=== PATIENT | male | born 1995 | race Caucasian/White ===

== ENCOUNTER 2024-10-08 14:57 | Emergency (ER) | payer MEDICAID ==
[~2024-10-08] VITALS: Ht 170.2 cm; Wt 95.0 kg
[2024-10-08 15:34] LABS: BASOPHILS # (AUTO) 0.2 X10'3 (0-0.2); BASOPHILS % (AUTO) 1.2 % (0-1); EOSINOPHILS # (AUTO) 0.2 X10'3 (0-0.9); HEMATOCRIT 42.8 % (42.0-52.0); HEMOGLOBIN 14.2 g/dl (14.0-17.9); LYMPHOCYTES # (AUTO) 3.3 X10'3 (1.1-4.8); LYMPHOCYTES % (AUTO) 26.8 % (21-51); MEAN CORPUSCULAR HEMOGLOBIN 27.9 PG (27.0-31.0); MEAN CORPUSCULAR HGB CONC 33.1 g/dL (33.0-36.5); MEAN CORPUSCULAR VOLUME 84.3 FL (78-98); MEAN PLATELET VOLUME 10.1 FL (7.4-10.4); MONOCYTES # (AUTO) 1.1 X10'3 (0-0.9); MONOCYTES % (AUTO) 8.9 % (2-12); NEUTROPHILS # (AUTO) 7.6 X10'3 (1.8-7.7); NEUTROPHILS % (AUTO) 61.1 % (42-75); PLATELET COUNT 309 X10'3 (140-440); RED BLOOD COUNT 5.08 X10'6 (4.70-6.10); WHITE BLOOD COUNT 12.4 X10'3 (4.5-11.0)
[2024-10-08 15:48] LABS: ALANINE AMINOTRANSFERASE 14 U/L (12-78); ALBUMIN 4.5 G/DL (3.4-5.0); ALBUMIN/GLOBULIN RATIO 1.1 (1.1-1.5); ALKALINE PHOSPHATASE 66 IU/L (46-116); ANION GAP 13 (8-16); ASPARTATE AMINO TRANSFERASE 17 U/L (10-37); BLOOD UREA NITROGEN 8 MG/DL (7-18); BUN/CREATININE RATIO 8.2 (10.0-20.0); CALCIUM 9.3 MG/DL (8.5-10.1); CHLORIDE 101 MMOL/L (99-107); CREATININE 0.97 MG/DL (0.60-1.10); GLUCOSE 82 MG/DL (70-104); POTASSIUM 3.3 MMOL/L (3.5-5.1); SODIUM 138 MMOL/L (135-145); TOTAL PROTEIN 8.7 G/DL (6.4-8.2); eCRCL 105 ML/MIN; eGFR > 90 ML/MIN
[2024-10-08 15:56] LABS: PRO BRAIN NATRIURETIC PEPTIDE 44 PG/ML (0-125)
[2024-10-08 17:05] VITALS: TEMP 97.3
[2024-10-08] MEDS ORDERED: OLANZapine **IM** 10 mg inj. IM ONE (17:25)
[2024-10-08] MEDS ORDERED: pantoprazole 40mg Tablet.DR PO SCH (17:25)
[2024-10-08] MEDS: pantoprazole 40mg Tablet.DR PO ONE (17:25)
[2024-10-08 17:26] LABS: D-DIMER < 0.19 MG/L FEU (0-0.50)
[2024-10-08] MEDS ORDERED: PROM25TA14 PO (17:48)
[2024-10-08] MEDS: ketorolac trometh 15mg/ml vial 15 MG/ML ML IV ONE (17:58)
[2024-10-08] MEDS: OLANZapine **IM** 10 mg inj. IM ONE (18:25)
[2024-10-08 19:55] VITALS: BP 111/58; PULSE 72; RESP 18; O2SAT 98
== END 2024-10-08 19:59 | disposition home or self-care (01) ==
LOC: ER 14:58
DX: R11.10 Vomiting, unspecified (principal); R10.84 Generalized abdominal pain; F64.0 Transsexualism; R07.89 Other chest pain; M79.7 Fibromyalgia; K21.9 Gastro-esophageal reflux disease without esophagitis
CPT/HCPCS: 36415; 71045; 80053; 83880; 84484; 85025; 85379; 93005; 96372; 96374; 99285; J1885; J3490

== ENCOUNTER 2024-12-01 11:08 | Inpatient (IN) | payer MEDICAID ==
[~2024-12-01] VITALS: Ht 170.2 cm; Wt 87.4 kg
[2024-12-01 11:52] LABS: BASOPHILS # (AUTO) 0.1 X10'3 (0-0.2); BASOPHILS % (AUTO) 0.9 % (0-1); EOSINOPHILS # (AUTO) 0.1 X10'3 (0-0.9); EOSINOPHILS % (AUTO) 1.2 % (0-6); HEMATOCRIT 40.9 % (42.0-52.0); HEMOGLOBIN 13.8 g/dl (14.0-17.9); LYMPHOCYTES # (AUTO) 2.7 X10'3 (1.1-4.8); MEAN CORPUSCULAR HEMOGLOBIN 28.2 PG (27.0-31.0); MEAN CORPUSCULAR HGB CONC 33.8 g/dL (33.0-36.5); MEAN CORPUSCULAR VOLUME 83.5 FL (78-98); MEAN PLATELET VOLUME 10.4 FL (7.4-10.4); MONOCYTES # (AUTO) 0.8 X10'3 (0-0.9); MONOCYTES % (AUTO) 7.3 % (2-12); NEUTROPHILS % (AUTO) 65.6 % (42-75); PLATELET COUNT 327 X10'3 (140-440); RED CELL DISTRIBUTION WIDTH 13.4 % (11.5-14.5); WHITE BLOOD COUNT 10.7 X10'3 (4.5-11.0)
[2024-12-01 12:25] LABS: ALANINE AMINOTRANSFERASE 16 U/L (12-78); ALBUMIN 4.4 G/DL (3.4-5.0); ALKALINE PHOSPHATASE 62 IU/L (46-116); ANION GAP 12 (8-16); ASPARTATE AMINO TRANSFERASE 15 U/L (10-37); BILIRUBIN,TOTAL 0.9 MG/DL (0.1-1.0); BLOOD UREA NITROGEN 5 MG/DL (7-18); BUN/CREATININE RATIO 5.7 (10.0-20.0); CALCIUM 9.8 MG/DL (8.5-10.1); CHLORIDE 102 MMOL/L (99-107); CREATININE 0.88 MG/DL (0.60-1.10); GLUCOSE 94 MG/DL (70-104); LIPASE 28 U/L (16-77); POTASSIUM 3.8 MMOL/L (3.5-5.1); SODIUM 138 MMOL/L (135-145); TOTAL CARBON DIOXIDE 24.1 MMOL/L (24-32); eCRCL 116 ML/MIN; eGFR > 90 ML/MIN
[2024-12-01] MEDS ORDERED: morphine 2 MG/ML inj. syringe IV ONE (13:25)
[2024-12-01] MEDS: ondansetron/PF 4mg/2ml inj IV ONE (14:19)
[2024-12-01] MEDS: normal saline 1000ml 1,000 ML IV ONE ×2 (14:19→15:38)
[2024-12-01] MEDS: morphine 4 MG/ML inj SYRINge IV ONE (14:20)
[2024-12-01 14:32] LABS: BILIRUBIN,URINE MODERATE (Neg); CLARITY,URINE SLIGHTLY CLOUDY (Clear); GLUCOSE, URINE NEGATIVE (Neg); KETONES,URINE >=80 mg/dl (Neg); LEUKOCYTE ESTERASE ,URINE NEGATIVE (Neg); OCCULT BLOOD,URINE NEGATIVE (Neg); PROTEIN,URINE 100 mg/dl (Neg)
[2024-12-01 14:34] LABS: UA COLLECTION TYPE URINAL
[2024-12-01 14:39] LABS: COLOR,URINE DARK YELLOW (Yellow); NITRITES, URINE NEGATIVE (Neg)
[2024-12-01 14:41] LABS: BACTERIA,URINE 1+ /HPF (Neg); MUCUS STRANDS FEW /LPF (Neg); RENAL CELLS, URINE FEW /HPF; SQUAMOUS EPITHELIAL CELL,UR MANY /LPF (FEW); TRANSITIONAL EPI CELLS,URINE MODERATE /HPF; WBC,URINE 0-4 /HPF (0-4)
[2024-12-01] MEDS ORDERED: ONDA-243 PO (15:28)
--- NOTE | 2024-12-01 15:28 | Physician Documentation ---
History of Present Illness Chief Complaint: Abdominal Pain w/vomiting Stated Complaint: ABD PAIN Time Seen by MD: 13:16 HPI Patient states that he has not been feeling well for about two weeks he has diffuse abdominal cramping pain he has been vomiting. He has a history of IBS. No fever. No diarrhea. Medication Reconciliation Allergies: Coded Allergies: No Known Allergies (Unverified , 10/08/24) Physical Exam Vital Signs: Temperature: 97.7, Source: Temporal, Heart Rate: 76, Respiratory Rate: 15, BP: 118/76, Pulse Oximetry: 96, Weight: 73.600 Physical Exam General: Awake and Alert, no acute distress. HEENT: Conjunctiva pink, Sclera clear, Mucus Membranes moist. Neck: Supple without masses and tenderness. Resp: Unlabored. Lungs clear to auscultation bilaterally. Heart: Regular Rate and rhythm, normal S1 and S2 without murmur, rub or gallop. Abdomen: Soft and non tender no organomegaly Extremities: No cyanosis,clubbing or edema. Skin: Warm and Dry. Neuro: GCS 15; no focal deficits Progress Results/Orders Results/Orders Completed Orders - NAHUN VARGAS MD Cbc/Diff (12/01/24 11:22) BMP (12/01/24 11:22) Lipase (12/01/24 11:22) CMP (12/01/24 11:22) Normal Saline 1000ml (Sodium Chloride 10 (12/01/24 13:25) Ondansetron Inj. (Zofran 4mg/2ml Vial) (12/01/24 13:25) Morphine 4mg/Ml Inj. (Morphine Inj.) (12/01/24 13:40) Ua W/Microscopic, Cult If Ind (12/01/24 14:06) Medications Received in ER Medications (Trade) Dose Ordered Sig/Cristobal Route PRN Reason Start Time Stop Time Status Last Admin Dose Admin Sodium Chloride 1,000 ml @ 1,000 mls/hr ONCE ONCE IV 12/01/24 13:25 12/01/24 14:24 DC 12/01/24 14:19 1,000 MLS/HR (Zofran 4mg/2ml vial) 4 mg ONCE ONCE IV 12/01/24 13:25 12/01/24 13:26 DC 12/01/24 14:19 4 MG (morphine inj.) 2 mg ONCE ONCE IV 12/01/24 13:40 12/01/24 13:41 DC 12/01/24 14:20 2 MG Vital Signs 12/01/24 12/01/24 12/01/24 11:19 13:31 14:20 Temp 97.7 Pulse 82 76 Resp 15 15 15 B/P (MAP) 130/60 118/76 (90) Pulse Ox 100 96 Laboratory Tests Test 12/01/24 11:44 12/01/24 14:06 White Blood Count 10.7 Red Blood Count 4.90 Hemoglobin 13.8 L Hematocrit 40.9 L Mean Corpuscular Volume 83.5 Mean Corpuscular Hemoglobin 28.2 Mean Corpuscular Hemoglobin Concent 33.8 Red Cell Distribution Width 13.4 Platelet Count 327 Mean Platelet Volume 10.4 Neutrophils (%) (Auto) 65.6 Lymphocytes (%) (Auto) 25.0 Monocytes (%) (Auto) 7.3 Eosinophils (%) (Auto) 1.2 Basophils (%) (Auto) 0.9 Neutrophils # (Auto) 7.0 Lymphocytes # (Auto) 2.7 Monocytes # (Auto) 0.8 Eosinophils # (Auto) 0.1 Basophils # (Auto) 0.1 CBC Comment Sodium Level 138 Potassium Level 3.8 Chloride Level 102 Carbon Dioxide Level 24.1 Anion Gap 12 Blood Urea Nitrogen 5 L Creatinine 0.88 Estimated GFR/1.73 m2 > 90 BUN/Creatinine Ratio 5.7 L Glucose Level 94 Calcium Level 9.8 Total Bilirubin 0.9 Aspartate Amino Transf (AST/SGOT) 15 Alanine Aminotransferase (ALT/SGPT) 16 Alkaline Phosphatase 62 Total Protein 9.0 H Albumin 4.4 Globulin 4.6 H Albumin/Globulin Ratio 1.0 L Lipase 28 Chemistry Comments Urine Specimen Description Urinal Urine Color Dark yellow Urine Clarity Slightly cloudy Urine pH 6.0 Urine Specific [place] 1.025 Urine Protein 100 H Urine Glucose (UA) Negative Urine Ketones >=80 Urine Occult Blood Negative Urine Nitrite Negative Urine Bilirubin Moderate Urine Urobilinogen 1.0 Urine Leukocyte Esterase Negative Urine RBC 3-10 Urine WBC 0-4 Urine Squamous Epithelial Cells Many Urine Transitional Epithelial Cells Moderate Urine Renal Cells Few Urine Bacteria 1+ Urine Mucus Few Urine Culture Indicated Not ind Volume Urine Centrifuged 10 ml Urine Comment Medical Decision Making Findings Patient is here with the abdominal pain vomiting he said he has been sick for about two weeks. Reassuring abdominal exam. Do not feel that he has indication for CT scan of the time. He is given pain nausea medicine 2 L of fluid all of his labs are reassuring patient was discharged. Departure Disposition: HOME / SELF CARE / HOMELESS Impression: Primary Impression: Vomiting Qualified Codes: R11.10 - Vomiting, unspecified Additional Impression: Abdominal pain Qualified Codes: R10.9 - Unspecified abdominal pain Condition: Stable Discharge Instructions: Vomiting, Adult Additional Instructions: Follow up with your regular doctor this week. Return for worsening symptoms fever or dehydration. Take Zofran as needed for nausea Referrals: NO PRIMARY CARE PROVIDER (PCP) Prescriptions ONDANSETRON ODT 4mg tablet (ONDANSETRON ODT) 4 Mg Tab.rapdis 1 TAB PO Q6H PRN PRN for nausea/vomiting, #20 TAB 0 Refills Prov: NAHUN VARGAS MD 12/01/24 Education Educated: Patient Educated regarding: diagnosis, treatment, prognosis, need for follow up Signature Scribe Signature: no scribe Attestation: no scribe NAHUN VARGAS MD Dec 01, 2024 15:28
[2024-12-01] MEDS ORDERED: iohexol 300mg/ml 100ml inj. ONE (16:16)
--- NOTE | 2024-12-01 17:36 | RADIOLOGY REPORT ---
Indication: abdominal pain and vomiting Technique: CT axial images of the abdomen and pelvis are obtained with intravenous contrast. Coronal and sagittal reformats were obtained. Radiation Dose Information: CTDI volume is 21 mGy. Dose-length product is 1161 mGy*cm Comparison: None FINDINGS: Lung bases demonstrate no pleural effusion. Adrenal glands, spleen, pancreas unremarkable. No enhancing hepatic lesion. No CT evidence for cholel ithiasis. No hydronephrosis. Stomach is partially distended. Small bowel loops are normal in caliber. Colonic diverticular disease. Normal appendix. Mild colonic mucosal hyperemia with surrounding strand ing. Abdominal aorta normal in caliber. Bladder is partially distended. No free pelvic fluid. No inguinal lymphadenopathy. No aggressive osseous process. [id number] thoracolumbar degenerative disc disease. IMPRESSION: 1. Mild colonic mucosal hyperemia with surrounding stranding, could represent inflammatory bowel dise ase, colitis. 2. There are scattered mesenteric lymph up to 1.5 cm which can be seen with mesenteric adenitis. 3. Colonic diverticular disease. Other findings as described.
[2024-12-01] MEDS: HYDROmorphone 1 mg/ml syringe IV ONE (18:08)
[2024-12-01] MEDS ORDERED: SPIR100T5 PO (20:11)
[2024-12-01] MEDS ORDERED: EST1T PO (20:11)
[2024-12-01] MEDS ORDERED: potassium Cl 20 mEq SR tablet PO PRN ×2 (20:40)
[2024-12-01] MEDS ORDERED: magnesium sulf-water 4G/100mL 100 ML IV PRN (20:40)
[2024-12-01] MEDS ORDERED: magnesium sulf-water 2g/50mL 50 ML IV PRN (20:40)
[2024-12-01] MEDS ORDERED: acetaminophen 325mg tablet PO PRN (20:40)
[2024-12-01] MEDS ORDERED: magnesium Cl slow-release 64mg tablet PO PRN (20:40)
--- NOTE | 2024-12-01 21:54 | HISTORY AND PHYSICAL-Residence ---
History & Physical Providers to CC Resident Creating Document: KARTIK DOMÍNGUEZ RES ~ History of Present Illness Reason for Admit\Complaint: Abdominal pain, nausea, vomiting History of Present Illness The patient is a 29-year-old male with a known history of irritable bowel syndrome, hiatal hernia, Pringle's esophagus, and fibromyalgia, who presents to the ER with diffuse periumbilical abdominal pain ongoing for the past two weeks, progressively worsening. He describes the pain as episodic and crampy and notes that it is exacerbated by oral intake, including both food and water. He has significantly reduced or oral intake and denies any diarrhea or blood in the stool. He also denies history of Crohn disease or ulcerative colitis. He reports frequent vomiting, often shortly after eating and episodes of dry heaving, especially when he has not eaten. He underwent a colonoscopy in [place] one year ago, with findings reportedly consistent with IBS and Pringle's esophagus, respectively. He denies any recent travel, sick contact, or change in medication. No history of GI bleeding reported. Allergies: Coded Allergies: No Known Allergies (Unverified , 10/08/24) Home Medications Home Medications Active Ondansetron Odt (Ondansetron HCl) 4 Mg Tab.rapdis 1 Tab PO Q6H PRN PRN Reported Estrace* (Estradiol) 1 Mg Tablet 2 Tab PO DAILY Spironolactone 100 Mg Tablet 1 Tab PO BID 30 Days Past Medical History Past Medical History Fibromyalgia, Pringle esophagus, hiatal hernia Past Surgical History Surgical History Comment Noncontributory Past Social History Social History Comment Denies smoking, alcohol, or recreational drugs ROS All Other Systems: Reviewed and Negative ROS As stated above in the HPI, otherwise all systems are reviewed and negative. Exam Vitals: Vital Signs Date Time Temp Pulse Resp B/P (MAP) Pulse Ox O2 Delivery O2 Flow Rate FiO2 12/01/24 20:15 87 17 107/69 (82) 100 12/01/24 11:19 97.7 General Appearance: Well developed, well nourished. Awake, alert and oriented x4, resting comfortably in bed, in no acute distress. HEENT: Atraumatic, normocephalic, ALBERT, EOMI. Normal oropharynx, moist oral mucosa. Neck: Trachea midline. Supple, normal ROM. No JVD, bruit, lymphadenopathy or masses, or other lesions. Respiratory: Chest wall is symmetric and without deformity. No signs of respiratory distress. Equal breath sounds bilaterally. No wheeze, rub, Rales or crackles. Cardiac: RRR, no murmur, rub or gallop. Normal S1 and S2. GI: No tenderness. Abdomen symmetric, nondistended, soft, normal bowel sounds x4 quadrant normoactive. No guarding, no rebound or rigidity. No hepatosplenomegaly. No masses, no bruit, no flank pain bilaterally. Extremities: Normal ROM, no swelling, non-tender. Distal pulses full symmetrical, no clubbing, cyanosis, edema, capillary refill less than 2 seconds. Skin: Intact, dry, warm, no rashes or petechia. Neuro: Speech is clear, alert and oriented x4. No sensory or motor deficit, DTRs normal. Cranial nerves II to XII intact. Psych: Normal affect, good eye contact, no apparent hallucination, normal speech. Diagnostic Data Last Recorded Lab Results: 12/01/24 1144 12/01/24 1144 Advance Care Planning Advanced Care plannin - 30 Minutes Additional Plan Assessment and plan: 29-year-old male with a history of IBS, Pringle's esophagus, hiatal hernia, and fibromyalgia, presenting with two weeks of progressively worsening diffuse periumbilical abdominal pain, associated with vomiting and dry heaves, exacerbated by oral intake. Abdominal pain; infectious colitis versus inflammatory bowel disease Mesenteric adenitis versus early Crohn's disease CT shows mild colonic mucosal hyperemia with surrounding fat stranding; may indicate colitis or IBD Scattered mesenteric lymph nodes up to 1.5 cm; nonspecific, but can be seen and mesenteric adenitis, IBD, or diverticular disease Calprotectin, stool for ova, parasite, and culture ordered, please follow Levaquin 500 mg IV daily along with Flagyl 500 mg IV twice daily initiated for possible bacterial colitis given radiographic and clinical findings NPO after midnight, GI for possible repeat colonoscopy IV hydration; NS 100 mL/hours Nausea/vomiting; Zofran, and Reglan on board Monitor for worsening symptoms, bleeding, Postural orthostatic tachycardia syndrome Pringle's esophagus Irritable bowel syndrome Fibromyalgia Hiatal hernia Protonix 40 mg IV daily Antispasmodic, Dicyclomine for IBS Orthostatic vitals ordered Code status: Full code DVT prophylaxis: Heparin subQ [facility] Internal Medicine Resident I discussed the patient with the resident and agree with the assessment and plan as above. Adebayo Yates MD Critical Care Date of Service: Dec 01, 2024 Billing Provider: ADEBAYO [facility]ATES [facility] Dec 01, 2024 21:54 ADEBAYO YATES MD Dec 02, 2024 03:32
[2024-12-01] MEDS: metroNIDAZOLE-Flagyl 500mg/NS 100ML IVPB IV SCH (22:05)
[2024-12-01] MEDS: normal saline 1000ml 1,000 ML IV SCH (22:10)
[2024-12-01] MEDS: levoFLOXACIN-Levaquin 500mg/D5 100 ML IV SCH (22:48)
--- NOTE | 2024-12-01 22:49 | RADIOLOGY REPORT ---
EXAM: US ULTRASOUND OF ABDOMEN HISTORY: abdominal pain worsens with oral intake COMPARISON: None TECHNIQUE: Real-time grayscale and color flow images of the abdomen were obtained. FINDINGS: LIVER: Liver measures 15 cm craniocaudal. Liver parenchyma is homogeneous in echotexture. No focal l esion is identified. No intrahepatic ductal dilatation. Normal directional flow is seen in the eusebio l vein. GALLBLADDER: No gallstones. No gallbladder wall edema or pericholecystic fluid. Gallbladder wall thi ckness is 0.2 cm. Sonographic Infante's sign is negative. COMMON BILE DUCT: 0.4 cm in caliber. PANCREAS: Visualized portions are unremarkable. KIDNEYS: The right kidney measures 9.5 cm in length. No hydronephrosis. No renal mass or stone. AORTA, IVC: Visualized portions are unremarkable. OTHER: None. IMPRESSION: No sonographic evidence of right upper quadrant abnormalities.
[2024-12-01] MEDS: metoclopramide 5 mg/ml inj IV PRN (23:27)
[2024-12-02] VITALS (7 sets, daily range): BP systolic 107–141; BP diastolic 59–79; PULSE 72–108; RESP 16–18; TEMP 98–98.3; O2SAT 95–100
[2024-12-02] MEDS ORDERED: piperacillin/tazo 3.375gm/50ml 50 ML IV SCH
[2024-12-02] MEDS: dicyclomine 10 MG capsule PO PRN (05:03)
[2024-12-02] MEDS: ondansetron/PF 4mg/2ml inj IV PRN (05:03)
[2024-12-02 05:36] LABS: BASOPHILS # (AUTO) 0.1 X10'3 (0-0.2); BASOPHILS % (AUTO) 0.8 % (0-1); EOSINOPHILS # (AUTO) 0.3 X10'3 (0-0.9); HEMATOCRIT 34.8 % (42.0-52.0); HEMOGLOBIN 11.8 g/dl (14.0-17.9); LYMPHOCYTES # (AUTO) 2.6 X10'3 (1.1-4.8); LYMPHOCYTES % (AUTO) 26.6 % (21-51); MEAN CORPUSCULAR HEMOGLOBIN 28.2 PG (27.0-31.0); MEAN CORPUSCULAR HGB CONC 33.9 g/dL (33.0-36.5); MEAN CORPUSCULAR VOLUME 83.2 FL (78-98); MEAN PLATELET VOLUME 11.4 FL (7.4-10.4); MONOCYTES # (AUTO) 0.9 X10'3 (0-0.9); MONOCYTES % (AUTO) 8.9 % (2-12); NEUTROPHILS # (AUTO) 5.9 X10'3 (1.8-7.7); NEUTROPHILS % (AUTO) 60.7 % (42-75); PLATELET COUNT 237 X10'3 (140-440); RED BLOOD COUNT 4.19 X10'6 (4.70-6.10); RED CELL DISTRIBUTION WIDTH 13.4 % (11.5-14.5); WHITE BLOOD COUNT 9.6 X10'3 (4.5-11.0)
[2024-12-02 05:52] LABS: ALANINE AMINOTRANSFERASE 13 U/L (12-78); ALBUMIN 3.3 G/DL (3.4-5.0); ALBUMIN/GLOBULIN RATIO 0.9 (1.1-1.5); ALKALINE PHOSPHATASE 48 IU/L (46-116); ANION GAP 13 (8-16); ASPARTATE AMINO TRANSFERASE 14 U/L (10-37); BILIRUBIN,TOTAL 0.8 MG/DL (0.1-1.0); BLOOD UREA NITROGEN 4 MG/DL (7-18); BUN/CREATININE RATIO 4.9 (10.0-20.0); CALCIUM 8.3 MG/DL (8.5-10.1); CHLORIDE 105 MMOL/L (99-107); CREATININE 0.81 MG/DL (0.60-1.10); GLUCOSE 82 MG/DL (70-104); POTASSIUM 3.3 MMOL/L (3.5-5.1); SODIUM 139 MMOL/L (135-145); TOTAL CARBON DIOXIDE 20.8 MMOL/L (24-32); TOTAL PROTEIN 6.8 G/DL (6.4-8.2); eCRCL 126 ML/MIN; eGFR > 90 ML/MIN
[2024-12-02] MEDS: potassium Cl 40MEQ/1/2NS 520ml 520 ML IV PRN (07:26)
[2024-12-02] MEDS: pantoprazole 40 MG vial IV SCH (07:39)
--- NOTE | 2024-12-02 08:16 | ELECTROCARDIOGRAPH REPORT ---
[facility] Test Date: 2024-12-02 Test Time: 08:15:16 Pat Name: JEREMIAH HAYES Department: ORTHO/NEURO Room: ORTHO [facility] [place] A Gender: M Daylight Driller: Aniya Rodriguez : 1995 Requested By: SAJI PRINCE Order Number: [id number] Reading MD: Dr. Taylor Ferrer Measurements Intervals Childs Rate: 84 P: 42 ME: 165 QRS: 11 QRSD: 89 T: 35 QT: 384 QTc: 454 Interpretive Statements Sinus rhythm Electronically Signed On 12-03-2024 6:00:[address] Taylor Ferrer Please click the below link to view image of tracing.
[2024-12-02] MEDS: K and/or MAG REPLACEMENT MC SCH (08:27)
[2024-12-02] MEDS ORDERED: morphine 2 MG/ML inj. syringe IV PRN (08:50)
[2024-12-02 08:59] LABS: PLATELET ESTIMATE NORMAL
[2024-12-02 09:03] LABS: LARGE PLATELETS FEW
[2024-12-02] MEDS: morphine 4 MG/ML inj SYRINge IV PRN (09:19)
--- NOTE | 2024-12-02 15:06 | PROGRESS NOTE- Residence ---
Progress Note - Resident Providers to CC Resident Creating Document: FRANCHESCA CARLOTARUSSELL Lloyd, RES ~ Antibiotic Timeout Antibiotic Ordered?: Yes Subjective The patient has been evaluated at the bedside. The patient reports mild improvement of abdominal pain. The patient is showing concerned about the abdominal pain, adamant with colonoscopy. Explained to the patient that she does not require colonoscopy at this time. Explained that we will advance his diet slowly. The patient states that he has been using hormones for change of gender. Patient identifies himself as transgender. The patient is currently passing gas since, had a bowel movement today. Objective Vital Signs Date Time Temp Pulse Resp B/P (MAP) Pulse Ox O2 Delivery O2 Flow Rate FiO2 12/02/24 10:47 16 12/02/24 10:00 98.0 98 115/72 (86) 100 Room Air 12/02/24 08:00 0.0 Physical exam: General: Well alert, well oriented, not confused, not agitated, not in acute distress, well cooperated during the physical. HEENT: Conjunctive are pink, sclerae clear, no icterus, pupil is equal in both sides, reactive to light, no ear discharge, no pharyngeal erythema or an edema. Neck: Supple, no JVD, no lymphadenopathy and thyromegaly. Chest: Equal air entry on both lungs, no additional sounds no rhonchi no wheezing at the moment. Cardiovascular: S1-S2 regular sinus rhythm and, regular rate, no gallops, no rubs, no murmurs Abdomen: No visible peristalsis, Bowel sounds present on auscultation, soft, mild tenderness, no guarding, no rigidity Extremities: No obvious deformities, no pitting edema bilaterally, capillary refill intact, peripheral pulsations are intact on both sides Central Nervous System: No focal neurological deficits, no motor or sensory weakness in all 4 extremities, could move all 4 extremities, 2+ deep tendon reflexes, negative Babinski. Musculoskeletal: No joint swelling, deformities, inflammations, and no scoliosis and back tenderness Skin: Warm and dry. Result Diagram: 12/02/24 [id number] Assessment Assessment 29-year-old male patient came to the hospital with chief complaint of abdominal pain. Plan Plan Abdominal pain; infectious colitis versus inflammatory bowel disease Mesenteric adenitis versus early Crohn's disease CT shows mild colonic mucosal hyperemia with surrounding fat stranding; may indicate colitis or IBD Scattered mesenteric lymph nodes up to 1.5 cm; nonspecific, but can be seen and mesenteric adenitis, IBD, or diverticular disease Calprotectin, stool for ova, parasite, and culture ordered, please follow Levaquin 500 mg IV daily along with Flagyl 500 mg IV twice daily initiated for possible bacterial colitis given radiographic and clinical findings NPO after midnight, GI for possible repeat colonoscopy IV hydration; NS 100 mL/hours Nausea/vomiting; Zofran, and Reglan on board Monitor for worsening symptoms, bleeding. 12/02/2024: We will advance his diet clear liquid diet. CT scan of the abdomen suggestive of mesenteric adenitis, explained to the patient that generally mesenteric adenitis will improve by itself. If symptoms does not improve we will consider CT scan with contrast. Pain control with morphine 2 mg q.4h. NS reduced at 50 mL/hour. Postural orthostatic tachycardia syndrome Pringle's esophagus Irritable bowel syndrome Fibromyalgia Hiatal hernia Protonix 40 mg IV daily Antispasmodic, Dicyclomine for IBS Orthostatic vitals ordered. 12/02/2024: We will continue antispasmodic, ppi. Orthostatic vitals negative. Code status: Full code DVT prophylaxis: Enoxaparin 40 mg daily. Analgesia/sedation: Morphine Line/tube: PIV GI prophylaxis: Protonix Nutrition: Clear liquid diet PT: No Prognosis: Guarded Disposition: We will advance diet as tolerated. Russell Cole Internal Medicine Resident [facility] Addendum trans female with persistent abd pain, poss mesenteric adenitis; pain management, diet as tolerated Date of Service: Dec 02, 2024 Billing Provider: SAJI PRINCE MD Common Visit Codes: [id number] INP/OBS CARE(HIGH) RUSSELL MARTIN, RES Dec 02, 2024 15:06 SAJI PRINCE MD Dec 02, 2024 22:06
[2024-12-02] MEDS: enoxaparin 40mg/0.4ml syringe SQ SCH (19:23)
[2024-12-03] VITALS (7 sets, daily range): BP systolic 106–122; BP diastolic 63–75; PULSE 78–119; RESP 14–18; TEMP 97.9–98.6; O2SAT 99–100
[2024-12-03 04:57] LABS: BASOPHILS # (AUTO) 0.1 X10'3 (0-0.2); BASOPHILS % (AUTO) 1.1 % (0-1); EOSINOPHILS # (AUTO) 0.3 X10'3 (0-0.9); EOSINOPHILS % (AUTO) 2.7 % (0-6); HEMATOCRIT 36.4 % (42.0-52.0); HEMOGLOBIN 12.2 g/dl (14.0-17.9); LYMPHOCYTES # (AUTO) 2.9 X10'3 (1.1-4.8); LYMPHOCYTES % (AUTO) 31.8 % (21-51); MEAN CORPUSCULAR HEMOGLOBIN 28.1 PG (27.0-31.0); MEAN CORPUSCULAR HGB CONC 33.5 g/dL (33.0-36.5); MEAN CORPUSCULAR VOLUME 83.8 FL (78-98); MONOCYTES # (AUTO) 0.8 X10'3 (0-0.9); MONOCYTES % (AUTO) 9.1 % (2-12); NEUTROPHILS # (AUTO) 5.1 X10'3 (1.8-7.7); NEUTROPHILS % (AUTO) 55.3 % (42-75); PLATELET COUNT 238 X10'3 (140-440); RED BLOOD COUNT 4.34 X10'6 (4.70-6.10); RED CELL DISTRIBUTION WIDTH 13.3 % (11.5-14.5); WHITE BLOOD COUNT 9.2 X10'3 (4.5-11.0)
[2024-12-03 05:30] LABS: ALANINE AMINOTRANSFERASE 11 U/L (12-78); ALBUMIN 3.6 G/DL (3.4-5.0); ALKALINE PHOSPHATASE 49 IU/L (46-116); ANION GAP 15 (8-16); ASPARTATE AMINO TRANSFERASE 16 U/L (10-37); BILIRUBIN,TOTAL 0.8 MG/DL (0.1-1.0); BLOOD UREA NITROGEN 3 MG/DL (7-18); BUN/CREATININE RATIO 3.4 (10.0-20.0); CALCIUM 8.9 MG/DL (8.5-10.1); CHLORIDE 106 MMOL/L (99-107); CREATININE 0.88 MG/DL (0.60-1.10); GLUCOSE 77 MG/DL (70-104); POTASSIUM 3.9 MMOL/L (3.5-5.1); SODIUM 140 MMOL/L (135-145); TOTAL CARBON DIOXIDE 18.9 MMOL/L (24-32); TOTAL PROTEIN 7.2 G/DL (6.4-8.2); eCRCL 116 ML/MIN; eGFR > 90 ML/MIN
[2024-12-03] MEDS: metoclopramide 5 mg/ml inj IV SCH (10:15)
[2024-12-03] MEDS: HYDROmorphone inj. 0.5 MG/0.5 ML DISP.SYRIN IV PRN (10:16)
--- NOTE | 2024-12-03 12:07 | PROGRESS NOTE- Residence ---
Progress Note - Resident Providers to CC Resident Creating Document: VINICIO MARTIN, FRANTZ ~ Antibiotic Timeout Antibiotic Ordered?: Yes Subjective The patient has been evaluated at the bedside. The patient still complaining of abdominal pain. Localized in the lower abdomen. Objective Vital Signs Date Time Temp Pulse Resp B/P (MAP) Pulse Ox O2 Delivery O2 Flow Rate FiO2 12/03/24 10:16 18 12/03/24 06:00 97.9 85 122/75 (91) 99 Room Air 12/02/24 20:00 0.0 Physical exam: General: Well alert, well oriented, not confused, not agitated, not in acute distress, well cooperated during the physical. HEENT: Conjunctive are pink, sclerae clear, no icterus, pupil is equal in both sides, reactive to light, no ear discharge, no pharyngeal erythema or an edema. Neck: Supple, no JVD, no lymphadenopathy and thyromegaly. Chest: Equal air entry on both lungs, no additional sounds no rhonchi no wheezing at the moment. Cardiovascular: S1-S2 regular sinus rhythm and, regular rate, no gallops, no rubs, no murmurs Abdomen: No visible peristalsis, Bowel sounds present on auscultation, soft, mild tenderness in hypogastrium, no guarding, no rigidity Extremities: No obvious deformities, no pitting edema bilaterally, capillary refill intact, peripheral pulsations are intact on both sides Central Nervous System: No focal neurological deficits, no motor or sensory weakness in all 4 extremities, could move all 4 extremities, 2+ deep tendon reflexes, negative Babinski. Musculoskeletal: No joint swelling, deformities, inflammations, and no scoliosis and back tenderness Skin: Warm and dry. Result Diagram: 12/03/24 0431 12/03/24 043 Assessment Assessment 29-year-old male patient came to the hospital with chief complaint of abdominal pain. Plan Plan Abdominal pain; infectious colitis versus inflammatory bowel disease Mesenteric adenitis versus early Crohn's disease CT shows mild colonic mucosal hyperemia with surrounding fat stranding; may indicate colitis or IBD Scattered mesenteric lymph nodes up to 1.5 cm; nonspecific, but can be seen and mesenteric adenitis, IBD, or diverticular disease Calprotectin, stool for ova, parasite, and culture ordered, please follow Levaquin 500 mg IV daily along with Flagyl 500 mg IV twice daily initiated for possible bacterial colitis given radiographic and clinical findings NPO after midnight, GI for possible repeat colonoscopy IV hydration; NS 100 mL/hours Nausea/vomiting; Zofran, and Reglan on board Monitor for worsening symptoms, bleeding. 12/02/2024: We will advance his diet clear liquid diet. CT scan of the abdomen suggestive of mesenteric adenitis, explained to the patient that generally mesenteric adenitis will improve by itself. If symptoms does not improve we will consider CT scan with contrast. Pain control with morphine 2 mg q.4h. NS reduced at 50 mL/hour. 12/03/2024: We will continue clear liquid diet. Ordered CT scan of abdomen with contrast, overnight prep. Started Reglan q.6h scheduled. Ordered Dilaudid 0.5 mg IV q.4h PRN. Postural orthostatic tachycardia syndrome-ruled out: Pringle's esophagus Irritable bowel syndrome Fibromyalgia Hiatal hernia Protonix 40 mg IV daily Antispasmodic, Dicyclomine for IBS Orthostatic vitals ordered. 12/02/2024: We will continue antispasmodic, ppi. Orthostatic vitals negative. 12/03/2024: Continue antispasmodic, dicyclomine. Code status: Full code DVT prophylaxis: Enoxaparin 40 mg daily. Analgesia/sedation: Morphine Line/tube: PIV GI prophylaxis: Protonix 40 mg p.o. daily. Nutrition: Clear liquid diet PT: Ordered. Prognosis: Guarded Disposition: CT scan of the abdomen with oral contrast, overnight prep. Vinicio Cole Internal Medicine Resident [facility] Date of Service: Dec 03, 2024 Billing Provider: SAJI PRINCE MD Common Visit Codes: [id number] INP/OBS CARE(HIGH) VINICIO MARTIN, RES Dec 03, 2024 12:07 SAJI PRINCE MD Dec 03, 2024 22:14
[2024-12-03] MEDS: MULTIVIT-MIN/FERROUS GLUCONATE 9 MG/15 ML LIQUID PO SCH (17:00)
[2024-12-03] MEDS: NUT.TX.IMPAIRED DIGEST FXN (Ensure Clear) 237 ML PO SCH (18:00)
[2024-12-03] MEDS: diatr meglu/diatrizoate 30ml oral sol.-(3 dose) bottle PO SCH (21:46)
[2024-12-04 06:00] VITALS: BP 105/66; PULSE 100; RESP 18; TEMP 97.8; O2SAT 100
[2024-12-04 07:00] VITALS: BP_SYST 123; BP_DIAS 80; BP_DIAS 85; PULSE 114; PULSE 93
[2024-12-04] MEDS ORDERED: iohexol 300mg/ml 100ml inj. ONE (07:23)
[2024-12-04 08:08] LABS: BASOPHILS # (AUTO) 0.1 X10'3 (0-0.2); EOSINOPHILS # (AUTO) 0.1 X10'3 (0-0.9); EOSINOPHILS % (AUTO) 1.9 % (0-6); HEMOGLOBIN 12.9 g/dl (14.0-17.9); LYMPHOCYTES # (AUTO) 1.7 X10'3 (1.1-4.8); LYMPHOCYTES % (AUTO) 22.1 % (21-51); MEAN CORPUSCULAR HEMOGLOBIN 27.8 PG (27.0-31.0); MEAN CORPUSCULAR VOLUME 84.4 FL (78-98); MEAN PLATELET VOLUME 10.7 FL (7.4-10.4); MONOCYTES # (AUTO) 0.7 X10'3 (0-0.9); MONOCYTES % (AUTO) 8.8 % (2-12); NEUTROPHILS # (AUTO) 5.1 X10'3 (1.8-7.7); NEUTROPHILS % (AUTO) 66.2 % (42-75); PLATELET COUNT 255 X10'3 (140-440); RED BLOOD COUNT 4.62 X10'6 (4.70-6.10); RED CELL DISTRIBUTION WIDTH 13.4 % (11.5-14.5); WHITE BLOOD COUNT 7.6 X10'3 (4.5-11.0)
[2024-12-04 09:02] LABS: ALANINE AMINOTRANSFERASE 12 U/L (12-78); ALKALINE PHOSPHATASE 56 IU/L (46-116); ANION GAP 17 (8-16); ASPARTATE AMINO TRANSFERASE 14 U/L (10-37); BILIRUBIN,TOTAL 0.8 MG/DL (0.1-1.0); BLOOD UREA NITROGEN 3 MG/DL (7-18); BUN/CREATININE RATIO 3.5 (10.0-20.0); CALCIUM 9.2 MG/DL (8.5-10.1); CHLORIDE 104 MMOL/L (99-107); CREATININE 0.86 MG/DL (0.60-1.10); GLUCOSE 85 MG/DL (70-104); POTASSIUM 3.8 MMOL/L (3.5-5.1); SODIUM 138 MMOL/L (135-145); TOTAL CARBON DIOXIDE 17.2 MMOL/L (24-32); TOTAL PROTEIN 8.1 G/DL (6.4-8.2); eCRCL 118 ML/MIN; eGFR > 90 ML/MIN
[2024-12-04 10:00] VITALS: BP 112/71; PULSE 89; RESP 16; TEMP 99; O2SAT 99
--- NOTE | 2024-12-04 12:27 | RADIOLOGY REPORT ---
Indication: abdominal pain Technique: CT axial images of the abdomen and pelvis are obtained without contrast. Coronal and sagit liang reformats were obtained. Radiation Dose Information: CTDI volume is 22.7 mGy. Dose-length product is 1151 mGy*cm Comparison: CT CT ABDOMEN PELVIS W/ IV CONTRAST on DOS: 12/01/24, ultrasound abdomen 12/02/2024 FINDINGS: There is limited interpretation of the abdomen and pelvis without administration of intravenous contr ast. Lung bases demonstrate no pleural effusion. Adrenal glands, spleen, pancreas and liver unremarkable in shape. Hyperdense gallbladder contents /s ludge. Kidneys demonstrate no hydronephrosis, nephrolithiasis. Stomach partially distended. Small bowel loops are normal in caliber. Large bowel normal in caliber. Normal appendix. Scattered colonic diverticula. Bladder partially distended. No free pelvic fluid. No inguinal lymphadenopathy. No aggressive osseous process. L5 pars defects. [id number] thoracolumbar degenerative disc di sease. IMPRESSION: 1. Gallbladder hyperdense contents/sludge. 2. No evidence for bowel obstruction.
--- NOTE | 2024-12-04 13:45 | PROGRESS NOTE- Residence ---
Progress Note - Resident Providers to CC Resident Creating Document: VINICIO MARTIN, FRANTZ ~ Antibiotic Timeout Antibiotic Ordered?: Yes Subjective The patient has been evaluated at the bedside. The patient reports significant improvement of abdominal pain. Objective Vital Signs Date Time Temp Pulse Resp B/P (MAP) Pulse Ox O2 Delivery O2 Flow Rate FiO2 12/04/24 10:00 99.0 89 16 112/71 (85) 99 Room Air 12/03/24 20:00 0.0 Physical exam: General: Well alert, well oriented, not confused, not agitated, not in acute distress, well cooperated during the physical. HEENT: Conjunctive are pink, sclerae clear, no icterus, pupil is equal in both sides, reactive to light, no ear discharge, no pharyngeal erythema or an edema. Neck: Supple, no JVD, no lymphadenopathy and thyromegaly. Chest: Equal air entry on both lungs, no additional sounds no rhonchi no wheezing at the moment. Cardiovascular: S1-S2 regular sinus rhythm and, regular rate, no gallops, no rubs, no murmurs Abdomen: No visible peristalsis, Bowel sounds present on auscultation, soft, mild tenderness in hypogastrium, no guarding, no rigidity Extremities: No obvious deformities, no pitting edema bilaterally, capillary refill intact, peripheral pulsations are intact on both sides Central Nervous System: No focal neurological deficits, no motor or sensory weakness in all 4 extremities, could move all 4 extremities, 2+ deep tendon reflexes, negative Babinski. Musculoskeletal: No joint swelling, deformities, inflammations, and no scoliosis and back tenderness Skin: Warm and dry. Result Diagram: 12/04/24 0747 12/04/24 0747 Assessment Assessment 29-year-old male patient came to the hospital with chief complaint of abdominal pain. Plan Plan Abdominal pain; infectious colitis versus inflammatory bowel disease Mesenteric adenitis versus early Crohn's disease CT shows mild colonic mucosal hyperemia with surrounding fat stranding; may indicate colitis or IBD Scattered mesenteric lymph nodes up to 1.5 cm; nonspecific, but can be seen and mesenteric adenitis, IBD, or diverticular disease Calprotectin, stool for ova, parasite, and culture ordered, please follow Levaquin 500 mg IV daily along with Flagyl 500 mg IV twice daily initiated for possible bacterial colitis given radiographic and clinical findings NPO after midnight, GI for possible repeat colonoscopy IV hydration; NS 100 mL/hours Nausea/vomiting; Zofran, and Reglan on board Monitor for worsening symptoms, bleeding. 12/02/2024: We will advance his diet clear liquid diet. CT scan of the abdomen suggestive of mesenteric adenitis, explained to the patient that generally mesenteric adenitis will improve by itself. If symptoms does not improve we will consider CT scan with contrast. Pain control with morphine 2 mg q.4h. NS reduced at 50 mL/hour. 12/03/2024: We will continue clear liquid diet. Ordered CT scan of abdomen with contrast, overnight prep. Started Reglan q.6h scheduled. Ordered Dilaudid 0.5 mg IV q.4h PRN. 12/04/2024: Patient reports improvement of symptoms. We will advance his diet. CT scan of the abdomen with oral contrast: Gallbladder hyperdense contents/sludge. No evidence for bowel obstruction. Anticipated discharge tomorrow. Postural orthostatic tachycardia syndrome-ruled out: Pringle's esophagus Irritable bowel syndrome Fibromyalgia Hiatal hernia Protonix 40 mg IV daily Antispasmodic, Dicyclomine for IBS Orthostatic vitals ordered. 12/02/2024: We will continue antispasmodic, ppi. Orthostatic vitals negative. 12/03/2024: Continue antispasmodic, dicyclomine. 12/04/2024: Continue antispasmodic. Code status: Full code DVT prophylaxis: Enoxaparin 40 mg daily. Analgesia/sedation: Morphine Line/tube: PIV GI prophylaxis: Protonix 40 mg p.o. daily. Nutrition: Clear liquid diet PT: Ordered. Prognosis: Guarded Disposition: Anticipated discharge tomorrow. Vinicio Cole Internal Medicine Resident [facility] Date of Service: Dec 04, 2024 Billing Provider: SAJI PRINCE MD Common Visit Codes: [id number] INP/OBS CARE(HIGH) VINICIO MARTIN, RES Dec 04, 2024 13:45 SAJI PRINCE MD Dec 04, 2024 22:19
[2024-12-04] MEDS ORDERED: DICY20TA17 PO (17:10)
[2024-12-04] MEDS ORDERED: METO5TAB98 PO (17:10)
--- NOTE | 2024-12-04 18:33 | DISCHARGE SUMMARY-Residence ---
Discharge Summary Providers to CC Resident Creating Document: RUSSELL MARTIN, RES ~ Discharge Summary Admission Diagnosis: COLITIS Hospital Course DATE OF ADMISSION: DATE OF DISCHARGE: Discharge Diagnosis\Comment: Infectious colitis versus inflammatory bowel disease-ruled out: Mesenteric adenitis Postural orthostatic tachycardia syndrome-ruled out: Pringle's esophagus Irritable bowel syndrome Fibromyalgia Hiatal hernia Operations\Procedures: None Consultants: None Complications: None Condition on DC: Stable New Medications: Dicyclomine HCl (Dicyclomine HCl) 20 Mg Tablet 1 TAB PO Q8H PRN for abdominal cramps for 10 Days, #30 TAB 0 Refills Metoclopramide* (Metoclopramide*) 5 Mg Tablet 1 TAB PO Q8H PRN for nausea for 5 Days, #15 TAB Continued Medications: Estradiol* (Estrace*) 1 Mg Tablet 2 TAB PO DAILY, TAB ONDANSETRON ODT 4mg tablet (Ondansetron Odt) 4 Mg Tab.rapdis 1 TAB PO Q6H PRN PRN for nausea/vomiting, #20 TAB 0 Refills Spironolactone (Spironolactone) 100 Mg Tablet 1 TAB PO BID for 30 Days, #30 TAB 0 Refills Discharge Summary: HPI: The patient is a 29-year-old male with a known history of irritable bowel syndrome, hiatal hernia, Pringle's esophagus, and fibromyalgia, who presents to the ER with diffuse periumbilical abdominal pain ongoing for the past two weeks, progressively worsening. He describes the pain as episodic and crampy and notes that it is exacerbated by oral intake, including both food and water. He has significantly reduced or oral intake and denies any diarrhea or blood in the stool. He also denies history of Crohn disease or ulcerative colitis. He reports frequent vomiting, often shortly after eating and episodes of dry heaving, especially when he has not eaten. He underwent a colonoscopy in [facility] one year ago, with findings reportedly consistent with IBS and Pringle's esophagus, respectively. He denies any recent travel, sick contact, or change in medication. No history of GI bleeding reported. Hospital course: 29-year-old male patient came to the hospital with chief complaint of abdominal pain. The patient was started on antispasmodic, antibiotics, pain medication due to suspicion of infectious colitis. Abdominal CT scan showing mesenteric ad enitis. Explained to the patient that this mesenteric adenitis will resolve itself. Due to prolonged symptoms the patient was ordered abdominal CT scan with oral contrast showing gallbladder hyperdense contents/sludge, no evidence of bowel obstruction. The patient reports significant improvement of symptoms, denies any pain, diarrhea, nausea, eager to be discharged home. The patient remains hemodynamically stable. The patient will be discharged home. Discharge course: The patient remains hemodynamically stable. The patient will be discharged with the following instructions: Call 911 or come to the emergency department if chest pains, shortness of breath, fever sensation, palpitations is evidence. Take Dicyclomine 1 tablet of 20 mg every 8 hour as needed for cramps. Take metoclopramide 1 tablet of 5 mg every 8 hours as needed for nausea. Continue your home medications. Physical exam: General: Well alert, well oriented, not confused, not agitated, not in acute distress, well cooperated during the physical. HEENT: Conjunctive are pink, sclerae clear, no icterus, pupil is equal in both sides, reactive to light, no ear discharge, no pharyngeal erythema or an edema. Neck: Supple, no JVD, no lymphadenopathy and thyromegaly. Chest: Equal air entry on both lungs, no additional sounds no rhonchi no wheezing at the moment. Cardiovascular: S1-S2 regular sinus rhythm and, regular rate, no gallops, no rubs, no murmurs Abdomen: No visible peristalsis, Bowel sounds present on auscultation, soft, mild tenderness in hypogastrium, no guarding, no rigidity Extremities: No obvious deformities, no pitting edema bilaterally, capillary refill intact, peripheral pulsations are intact on both sides Central Nervous System: No focal neurological deficits, no motor or sensory weakness in all 4 extremities, could move all 4 extremities, 2+ deep tendon reflexes, negative Babinski. Musculoskeletal: No joint swelling, deformities, inflammations, and no scoliosis and back tenderness Skin: Warm and dry. Vital Signs Date Time Temp Pulse Resp B/P (MAP) Pulse Ox O2 Delivery O2 Flow Rate FiO2 12/04/24 10:00 99.0 89 16 112/71 (85) 99 Room Air 12/04/24 08:00 0.0 Laboratory Tests Test 12/03/24 04:31 12/04/24 07:47 White Blood Count 9.2 X10'3 7.6 X10'3 Red Blood Count 4.34 X10'6 4.62 X10'6 Hemoglobin 12.2 g/dl 12.9 g/dl Hematocrit 36.4 % 39.0 % Mean Corpuscular Volume 83.8 FL 84.4 FL Mean Corpuscular Hemoglobin 28.1 PG 27.8 PG Mean Corpuscular Hemoglobin Concent 33.5 g/dL 33.0 g/dL Red Cell Distribution Width 13.3 % 13.4 % Platelet Count 238 X10'3 255 X10'3 Mean Platelet Volume 11.0 FL 10.7 FL Neutrophils (%) (Auto) 55.3 % 66.2 % Lymphocytes (%) (Auto) 31.8 % 22.1 % Monocytes (%) (Auto) 9.1 % 8.8 % Eosinophils (%) (Auto) 2.7 % 1.9 % Basophils (%) (Auto) 1.1 % 1.0 % Neutrophils # (Auto) 5.1 X10'3 5.1 X10'3 Lymphocytes # (Auto) 2.9 X10'3 1.7 X10'3 Monocytes # (Auto) 0.8 X10'3 0.7 X10'3 Eosinophils # (Auto) 0.3 X10'3 0.1 X10'3 Basophils # (Auto) 0.1 X10'3 0.1 X10'3 CBC Comment Sodium Level 140 MMOL/L 138 MMOL/L Potassium Level 3.9 MMOL/L 3.8 MMOL/L Chloride Level 106 MMOL/L 104 MMOL/L Carbon Dioxide Level 18.9 MMOL/L 17.2 MMOL/L Anion Gap 15 17 Blood Urea Nitrogen 3 MG/DL 3 MG/DL Creatinine 0.88 MG/DL 0.86 MG/DL Estimated GFR/1.73 m2 > 90 ML/MIN > 90 ML/MIN BUN/Creatinine Ratio 3.4 3.5 Glucose Level 77 MG/DL 85 MG/DL Calcium Level 8.9 MG/DL 9.2 MG/DL Total Bilirubin 0.8 MG/DL 0.8 MG/DL Aspartate Amino Transf (AST/SGOT) 16 U/L 14 U/L Alanine Aminotransferase (ALT/SGPT) 11 U/L 12 U/L Alkaline Phosphatase 49 IU/L 56 IU/L Total Protein 7.2 G/DL 8.1 G/DL Albumin 3.6 G/DL 4.0 G/DL Globulin 3.6 G/DL 4.1 G/DL Albumin/Globulin Ratio 1.0 1.0 Chemistry Comments *Problems/Diagnosis: (1) Mesenteric adenitis Status: Resolved (2) Inflammatory bowel syndrome Status: Chronic Total Time Spent on D/C: > 30 Minutes Date of Service: Dec 04, 2024 Billing Provider: SAJI PRINCE MD Common Visit Codes: 55327-ENT/OBS DISCH DAY >30min RUSSELL MARTIN, RES Dec 04, 2024 18:32 SAJI PRINCE MD Dec 04, 2024 22:20
== END 2024-12-04 18:05 | disposition home or self-care (01) | DRG 254 ==
LOC: ER 11:08 → ED HOLD 20:48 → EDBEDREQ 23:54 → ORTHO 4S 12-02 00:15
PROVIDERS: ADMIT Internal Medicine Pulmonary Disease; ATTEND Internal Medicine
PROC: BW211ZZ Computerized Tomography (CT Scan) of Abdomen and Pelvis using Low Osmolar Contrast (ICD-10-PCS; principal; 2024-12-01)
DX: I88.0 Nonspecific mesenteric lymphadenitis (principal); A09 Infectious gastroenteritis and colitis, unspecified; M79.7 Fibromyalgia; K22.70 Barrett's esophagus without dysplasia; K44.9 Diaphragmatic hernia without obstruction or gangrene
CPT/HCPCS: 36415; 74176; 74177; 76700; 80053; 81001; 83690; 84145; 85008; 85025; 87045; 87046; 87081; 89055; 93005; 96361; 96374; 96375; 97116; 97161; 97530; 99285; G0378; J1171; J1650; J1956; J2270; J2405; J2470; J2765; J3480; J3490; J7030; Q9963; Q9967